=== PATIENT | female | born 2000 | race Caucasian/White ===

== ENCOUNTER 2020-10-24 08:40 | Inpatient (IN) | payer MEDICAID, SELFPAY ==
[~2020-10-24] VITALS: Ht 154.9 cm; Wt 75.7 kg
[2020-10-24] MEDS ORDERED: METHYLERGONOVINE 0.2 MG/ML AMP IM PRN (09:10)
[2020-10-24] MEDS ORDERED: PROMETHAZINE 25 MG/ML VIAL IVP PRN (09:10)
[2020-10-24] MEDS ORDERED: NALBUPHINE 10 MG/ML AMP IVP PRN (09:10)
[2020-10-24] MEDS ORDERED: CARBOPROST 250 MCG/ML AMP IM PRN (09:10)
[2020-10-24] MEDS ORDERED: AMPICILLIN 2,000 MG in NACL 0.9% MINI-BAG PLUS 100 ML IV SCH (09:10)
[2020-10-24] MEDS ORDERED: LACTATED RINGERS 500 ML IV SCH (09:13)
[2020-10-24 09:47] LABS: BASOPHILS # (AUTO) 0.1 K/uL (0.00-0.22); BASOPHILS % (AUTO) 0.7 % (0.0-2.0); EOSINOPHILS % (AUTO) 0.2 % (0.0-4.0); HEMATOCRIT 26.7 % (36-48); HEMOGLOBIN 8.8 g/dL (12.0-16.0); LYMPHOCYTES # (AUTO) 0.6 K/uL (2.5-16.5); LYMPHOCYTES % (AUTO) 4.2 % (20.5-51.1); MEAN CORPUSCULAR HEMOGLOBIN 30 pg (27-31); MEAN CORPUSCULAR HGB CONC 33 g/dL (33-37); MEAN CORPUSCULAR VOLUME 90.2 fL (80-94); MONOCYTES # (AUTO) 0.7 K/uL (0.8-1.0); MONOCYTES % (AUTO) 5.5 % (1.7-9.3); NEUTROPHILS # (AUTO) 11.9 K/uL (1.8-7.7); NEUTROPHILS % (AUTO) 89.4 % (42.2-75.2); PLATELET COUNT (AUTO) 247 K/uL (140-450); RED BLOOD CELL COUNT(AUTO) 2.96 MIL/uL (4.20-5.40); WHITE BLOOD COUNT (AUTO) 13.3 K/uL (4.8-10.8)
[2020-10-24 09:48] LABS: BILIRUBIN,URINE NEGATIVE (NEGATIVE); BLOOD, URINE 3+ (NEGATIVE); COLOR,URINE YELLOW (YELLOW); LEUKOCYTE ESTERASE ,URINE 2+ (NEGATIVE); NITRITE, URINE NEGATIVE (NEGATIVE); PH,URINE 6.5 (5.0-9.0); UGLUCOSE 1+ (NEGATIVE)
[2020-10-24 09:58] LABS: APPEARANCE,URINE HAZY (CLEAR); RBC,URINE NONE SEEN /HPF (0-5); WBC,URINE 16-25 (MOD) /HPF (0-5)
[2020-10-24 10:02] LABS: ALBUMIN 3.1 g/dL (3.4-5.0); CARBON DIOXIDE 22.9 mmol/L (21-32); CREATININE 0.5 mg/dL (0.6-1.3); POTASSIUM 3.9 mmol/L (3.5-5.1); TOTAL BILIRUBIN 0.5 mg/dL (0.0-1.0)
[2020-10-24] MEDS ORDERED: AMPICILLIN 2,000 MG VIAL ONE (10:31)
[2020-10-24] MEDS: LACTATED RINGERS 1,000 ML IV SCH ×3 (10:46→16:53)
[2020-10-24 11:47] VITALS: BP 116/70
[2020-10-24] MEDS ORDERED: ROPIVACAINE 0.2%/NS PREMIX 200 ML EPI ONE ×2 (14:20→18:29)
[2020-10-24] MEDS ORDERED: AMPICILLIN 1,000 MG VIAL ONE ×3 (15:19→22:27)
[2020-10-24] MEDS: AMPICILLIN 1,000 MG in NACL 0.9% MINI-BAG PLUS 50 ML IV SCH ×3 (15:22→23:01)
[2020-10-24] MEDS ORDERED: OXYTOCIN 20 UNITS in LACTATED RINGERS 1,000 ML IV SCH (15:55)
[2020-10-24] MEDS ORDERED: ROPIVACAINE 0.2%/NS PREMIX 100 ML EPI SCH (16:30)
[2020-10-24] MEDS ORDERED: ACETAMINOPHEN 325 MG TAB ONE (22:18)
[2020-10-24] MEDS: ACETAMINOPHEN 325 MG TAB PO PRN (22:25)
[2020-10-25] MEDS: LACTATED RINGERS 1,000 ML IV SCH ×5 (01:50→15:44)
[2020-10-25] MEDS ORDERED: AMPICILLIN 1,000 MG VIAL ONE ×3 (02:32→10:43)
[2020-10-25] MEDS: AMPICILLIN 1,000 MG in NACL 0.9% MINI-BAG PLUS 50 ML IV SCH ×2 (03:00→06:58)
[2020-10-25] MEDS: ACETAMINOPHEN 325 MG TAB PO PRN (04:22)
[2020-10-25] MEDS ORDERED: TERBUTALINE 1 MG/ML VIAL SUBQ ONE (08:29)
[2020-10-25] MEDS ORDERED: TERBUTALINE 1 MG/ML VIAL SUBQ SCH (08:45)
[2020-10-25] MEDS ORDERED: ROPIVACAINE 0.2%/NS PREMIX 200 ML EPI ONE (09:03)
[2020-10-25] MEDS ORDERED: MORPHINE PRES FREE 10 MG/10 ML AMP IV ONE (13:53)
[2020-10-25] MEDS ORDERED: fentaNYL citrate 0.05 MG/ML VIAL ONE (13:53)
[2020-10-25] MEDS ORDERED: ceFAZolin 1,000 MG VIAL ONE ×3 (14:00→21:09)
[2020-10-25] MEDS ORDERED: DEXAMETHASONE 4 MG/ML VIAL ONE (14:00)
[2020-10-25] MEDS ORDERED: ONDANSETRON 4 MG/2 ML VIAL ONE (14:00)
[2020-10-25] MEDS ORDERED: LIDOCAINE/EPI MPF 2%1:200000 10 ML VIAL INJ ONE (14:06)
[2020-10-25] MEDS ORDERED: OXYTOCIN 20 UNITS in LACTATED RINGERS 1,000 ML IV SCH (14:25)
[2020-10-25] MEDS ORDERED: METHYLERGONOVINE 0.2 MG/ML AMP IM PRN (14:25)
[2020-10-25] MEDS ORDERED: HYDROmorphone 1 MG/ML AMP IVP PRN (14:25)
[2020-10-25] MEDS ORDERED: KETOROLAC 30 MG/ML VIAL IVP PRN (14:25)
[2020-10-25] MEDS ORDERED: TEMAZEPAM 15 MG CAP PO PRN (14:25)
[2020-10-25] MEDS ORDERED: MEASLES, MUMPS, AND RUBELLA 1 VIAL SQVAC PRN (14:25)
[2020-10-25] MEDS ORDERED: oxyCODONE/APAP 5/325 MG 1 TAB TAB PO PRN ×2 (14:25)
[2020-10-25] MEDS: OXYTOCIN 20 UNITS/LR PREMIX 1,000 ML IV ONE ×2 (15:32→15:44)
[2020-10-25] MEDS: ACETAMINOPHEN 100 ML IV PRN ×2 (15:32→15:44)
[2020-10-25] MEDS ORDERED: NALOXONE 0.4 MG/ML VIAL IVP PRN ×3 (17:45)
[2020-10-25] MEDS ORDERED: diphenhydrAMINE 50 MG/ML VIAL IVP PRN (17:45)
[2020-10-25] MEDS ORDERED: ONDANSETRON 4 MG/2 ML VIAL IVP PRN (17:45)
[2020-10-25] MEDS ORDERED: DOCUSATE SOD/SENNA 50/8.6 MG 1 TAB PO SCH (21:00)
[2020-10-26] MEDS ORDERED: OXYTOCIN 20 UNITS/LR PREMIX 1,000 ML IV ONE ×2 (01:43→11:59)
[2020-10-26] MEDS ORDERED: ceFAZolin 1,000 MG VIAL ONE ×2 (05:06)
[2020-10-26] MEDS ORDERED: ACETAMINOPHEN EXTRA STRENGTH 500 MG TAB PO PRN (05:30)
[2020-10-26 05:44] LABS: BASOPHILS % (AUTO) 0.1 % (0.0-2.0); EOSINOPHILS % (AUTO) 0.1 % (0.0-4.0); HEMATOCRIT 22.2 % (36-48); HEMOGLOBIN 7.3 g/dL (12.0-16.0); LYMPHOCYTES # (AUTO) 0.7 K/uL (2.5-16.5); LYMPHOCYTES % (AUTO) 4.5 % (20.5-51.1); MEAN CORPUSCULAR HEMOGLOBIN 30 pg (27-31); MEAN CORPUSCULAR HGB CONC 33 g/dL (33-37); MEAN CORPUSCULAR VOLUME 90.1 fL (80-94); MONOCYTES # (AUTO) 0.8 K/uL (0.8-1.0); MONOCYTES % (AUTO) 4.9 % (1.7-9.3); NEUTROPHILS # (AUTO) 14.6 K/uL (1.8-7.7); NEUTROPHILS % (AUTO) 90.4 % (42.2-75.2); PLATELET COUNT (AUTO) 230 K/uL (140-450); RED BLOOD CELL COUNT(AUTO) 2.46 MIL/uL (4.20-5.40); RED CELL DISTRIBUTION WIDTH 14.7 % (11.6-13.7); WHITE BLOOD COUNT (AUTO) 16.2 K/uL (4.8-10.8)
--- NOTE | 2020-10-26 08:47 | NUR ---
PATIENT HAS BEEN SCREENED AND CATEGORIZED LOW NUTRITION RISK. PATIENT WILL BE SEEN WITHIN 7 DAYS OF ADMISSION. 10/30/[address]
[2020-10-26] MEDS: IBUPROFEN 800 MG TAB PO PRN ×2 (12:39→20:24)
[2020-10-26] MEDS: SIMETHICONE 80 MG TAB.CHEW PO PRN (12:41)
[2020-10-26 14:22] LABS: HEPATITIS B SURFACE ANTIGEN NEGATIVE (NEGATIVE)
[2020-10-27] MEDS ORDERED: CAMERA MC ONE (03:58)
[2020-10-27] MEDS: IBUPROFEN 800 MG TAB PO PRN (05:40)
[2020-10-27] MEDS: SIMETHICONE 80 MG TAB.CHEW PO PRN (12:11)
== END 2020-10-27 16:55 | disposition home or self-care (01) | DRG 540 ==
LOC: MLD 08:40 → MFCC 10-25 15:28
PROVIDERS: ADMIT Obstetrics & Gynecology; ATTEND Obstetrics & Gynecology
PROC: 10D00Z1 Extraction of Products of Conception, Low, Open Approach (ICD-10-PCS; principal; 2020-10-25 02:30)
DX: O62.0 Primary inadequate contractions (principal); R71.0 Precipitous drop in hematocrit; O69.1XX0 Labor and delivery complicated by cord around neck, with compression, not applicable or unspecified; Z20.822 Contact with and (suspected) exposure to COVID-19; Z37.0 Single live birth; Z3A.39 39 weeks gestation of pregnancy
CPT/HCPCS: 36415; 51702; 80053; 81001; 85025; 86592; 86762; 86886; 86900; 86901; 86920; 87086; 87340; 87653-90; 88307; 90707; J0290; J0690; J1100; J2001; J2270; J2300; J2405; J2550; J2590; J2795; J3010; J3105; J7060; J7120